=== PATIENT | female | born 1970 | race Caucasian/White ===

== ENCOUNTER 2020-05-11 18:22 | Inpatient (IN) | payer MEDICAID ==
[~2020-05-11] VITALS: Ht 162.6 cm; Wt 76.5 kg
[2020-05-11 19:39] LABS: BASOPHILS 0.2 % (0-2); HEMATOCRIT 44.4 % (36.0-48.0); HEMOGLOBIN 14.6 g/dL (12-16); IMMATURE GRANULOCYTES 0.4 % (0-5); LYMPHOCYTES 21.3 % (15-50); MCH 26.1 pg (26.0-34.0); MCHC 32.9 g/dL (31.0-37.0); MCV 79.4 fL (80.0-100.0); MONOCYTES 6.2 % (2-11); NEUTROPHILS 69.9 % (40-80); PLATELET COUNT 199 10x3/uL (130-400); RBC 5.59 10x6/uL (4.00-5.40); RDW 16.1 % (11.5-14.5); WBC 14.2 10x3/uL (4.8-10.8)
[2020-05-11 19:41] LABS: BILIRUBIN NEGATIVE (NEGATIVE); KETONE NEGATIVE (NEGATIVE); NITRITE POSITIVE (NEGATIVE); UROBILINOGEN NORMAL mg/dL (< 2)
[2020-05-11 19:42] LABS: BACTERIA FEW HPF (NONE SEEN); EPITHELIAL CELLS 0-5 /hpf (0-5)
[2020-05-11 19:50] LABS: APTT 27.9 SECONDS (22.8-39.4); INR 0.96 (0.85-1.17); PROTIME 12.8 SECONDS (11.6-15.0)
[2020-05-11 19:59] LABS: CALC OSMOLALITY 270 mosm/kg (275-300); CALCIUM 9.5 mg/dL (8.5-10.1); CARBON DIOXIDE 27.9 mmol/L (21.0-32.0); CHLORIDE - SERUM 99 mmol/L (98-107); CREATININE - SERUM 0.7 mg/dL (0.6-1.3); GLUCOSE 280 mg/dL (74-106); POTASSIUM - SERUM 3.5 mmol/L (3.5-5.1); SODIUM 131 mmol/L (136-145); UREA NITROGEN 8 mg/dL (7-18); eGFR NON AFRICAN AMERICAN > 90 mL/min (90-120)
[2020-05-11 20:13] LABS: ALBUMIN 3.7 g/dL (3.4-5.0); ALKALINE PHOSPHATASE 174 U/L (30-120); ALT (SGPT) 16 U/L (10-68); BILIRUBIN - TOTAL 0.37 mg/dL (0.2-1.3); LIPASE 104 U/L (73-393); PRO BNP 181 pg/mL (0-125); PROTEIN - SERUM 8.4 g/dL (6.4-8.2)
[2020-05-11 20:16] LABS: TROPONIN-I < 0.017 ng/mL (0.000-0.060)
[2020-05-11 21:30] VITALS: BP 105/61
--- NOTE | 2020-05-11 22:12 | NUR ---
PT GIVEN BLANKETS AND PILLOW. DENIES FURTHER NEEDS, CALL LIGHT IN REACH. WILL CONTINUE TO MONITOR.
[2020-05-11 23:30] VITALS: BP 112/68
[2020-05-12] VITALS (9 sets, daily range): BP systolic 105–154; BP diastolic 63–89
--- NOTE | 2020-05-12 00:08 | NUR ---
PT AMBULATED TO RESTROOM INDEPENDENTLY.
--- NOTE | 2020-05-12 02:19 | NUR ---
PT GIVEN ICE WATER, DENIES FURTHER NEEDS AT THIS TIME. CALL LIGHT IN REACH. WILL CONTINUE TO MONITOR.
--- NOTE | 2020-05-12 04:10 | NUR ---
PT RESTING WITH EYES CLOSED, RR EVEN AND UNLABORED, VSS, CALL LIGHT IN REACH. WILL CONTINUE TO MONITOR.
[2020-05-12 05:33] LABS: BASOPHILS 0.2 % (0-2); EOSINOPHILS 2.3 % (0-7); HEMATOCRIT 38.3 % (36.0-48.0); HEMOGLOBIN 12.2 g/dL (12-16); IMMATURE GRANULOCYTES 0.5 % (0-5); LYMPHOCYTES 32.2 % (15-50); MCH 25.6 pg (26.0-34.0); MCHC 31.9 g/dL (31.0-37.0); MCV 80.5 fL (80.0-100.0); MEAN PLATELET VOLUME 9.9 fL (7.4-10.4); MONOCYTES 7.9 % (2-11); NEUTROPHILS 56.9 % (40-80); RBC 4.76 10x6/uL (4.00-5.40); RDW 16.3 % (11.5-14.5)
[2020-05-12 05:34] LABS: PLATELET COUNT 150 10x3/uL (130-400); WBC 8.6 10x3/uL (4.8-10.8)
--- NOTE | 2020-05-12 06:09 | NUR ---
PT RESTING QUIETLY, EYES CLOSED, RR EVEN AND UNLABORED. PT AWAKES EASILY TO VERBAL STIMULI, DENIES ANY NEEDS AT THIS TIME. CALL LIGHT IN REACH. WILL CONTINUE TO MONITOR.
[2020-05-12 06:27] LABS: CALCIUM 8.3 mg/dL (8.5-10.1); CARBON DIOXIDE 26.7 mmol/L (21.0-32.0); CHLORIDE - SERUM 104 mmol/L (98-107); MAGNESIUM - SERUM 1.8 mg/dL (1.8-2.4); PHOSPHOROUS 2.9 mg/dL (2.5-4.9); POTASSIUM - SERUM 3.6 mmol/L (3.5-5.1); SODIUM 137 mmol/L (136-145); UREA NITROGEN 9 mg/dL (7-18)
[2020-05-12 06:28] LABS: CALC OSMOLALITY 278 mosm/kg (275-300); CREATININE - SERUM 0.5 mg/dL (0.6-1.3); GLUCOSE 204 mg/dL (74-106); eGFR NON AFRICAN AMERICAN > 90 mL/min (90-120)
--- NOTE | 2020-05-12 07:15 | NUR ---
ASSUMED CARE OF PT. RESTING IN BED, LYING ON LEFT SIDE EYES CLOSED. NAD NOTED. VSS
--- NOTE | 2020-05-12 13:56 | NUR ---
TO CT VIA STRETCHER WITH CLAIMS SUPERVISOR
--- NOTE | 2020-05-12 18:15 | NUR ---
REPORT TO ELIZA DE LA CRUZ
[2020-05-12] MEDS ORDERED: BAYER CHEWABLE81 MG PO (19:36)
[2020-05-12] MEDS ORDERED: OXYBUTYNIN CHLOR5 MG PO (19:36)
[2020-05-12] MEDS ORDERED: NITROQUICK0.4 MG SL (19:37)
[2020-05-12] MEDS ORDERED: OMEPRAZOLE20 M1 PO (19:37)
[2020-05-12] MEDS ORDERED: ZOLOFT100 MG PO (19:38)
[2020-05-12] MEDS ORDERED: ZESTRIL10 MG PO (19:38)
[2020-05-12] MEDS ORDERED: COREG 3.1253.125 MG PO (19:38)
[2020-05-12] MEDS ORDERED: LIPITOR40 MG PO (19:39)
[2020-05-12] MEDS ORDERED: EFFIENT10 MG PO (19:39)
[2020-05-12] MEDS ORDERED: GLUCOPHAGE1000 MG PO (19:40)
[2020-05-12] MEDS ORDERED: HUMALOG 30100 UNITS/ SC (19:41)
[2020-05-13] VITALS: BP 132/78
[2020-05-13 00:45] VITALS: BP 154/89; Ht 162.6 cm; Wt 76.5 kg
[2020-05-13 04:42] VITALS: BP 116/67
[2020-05-13 05:42] LABS: BASOPHILS 0.3 % (0-2); EOSINOPHILS 2.1 % (0-7); HEMATOCRIT 37.1 % (36.0-48.0); HEMOGLOBIN 11.4 g/dL (12-16); IMMATURE GRANULOCYTES 0.5 % (0-5); LYMPHOCYTES 39.7 % (15-50); MCH 25.2 pg (26.0-34.0); MCHC 30.7 g/dL (31.0-37.0); MCV 81.9 fL (80.0-100.0); MEAN PLATELET VOLUME 9.9 fL (7.4-10.4); MONOCYTES 5.9 % (2-11); NEUTROPHILS 51.5 % (40-80); PLATELET COUNT 142 10x3/uL (130-400); RBC 4.53 10x6/uL (4.00-5.40); RDW 16.3 % (11.5-14.5); WBC 6.6 10x3/uL (4.8-10.8)
[2020-05-13 06:12] LABS: CALC OSMOLALITY 283 mosm/kg (275-300); CALCIUM 8.6 mg/dL (8.5-10.1); CARBON DIOXIDE 25.5 mmol/L (21.0-32.0); CHLORIDE - SERUM 106 mmol/L (98-107); CREATININE - SERUM 0.4 mg/dL (0.6-1.3); GLUCOSE 219 mg/dL (74-106); MAGNESIUM - SERUM 1.9 mg/dL (1.8-2.4); PHOSPHOROUS 3.2 mg/dL (2.5-4.9); POTASSIUM - SERUM 3.8 mmol/L (3.5-5.1); SODIUM 139 mmol/L (136-145); UREA NITROGEN 11 mg/dL (7-18); eGFR NON AFRICAN AMERICAN > 90 mL/min (90-120)
[2020-05-13 09:52] VITALS: BP 147/88
[2020-05-13] MEDS ORDERED: LEVAQUIN750 MG PO (11:13)
--- NOTE | 2020-05-13 11:45 | MORECARE ---
CASE MANAGEMENT DISCHARGE SUMMARY PATIENT: ASHISH WILL UNIT: [id number] ADM DATE: 05/11/20 AGE: 50 : 74 SEX: F ROOM/BED: D.2104 AUTHOR: FIDELINA MONTES PHYSICIAN: REFERRING PHYSICIAN: AJIT POWERS MD DATE OF SERVICE: 05/13/20 Discharge Plan Patient Name: ASHISH WILL Facility: [facility]:[place] : 1970 Planned Disposition: Home Anticipated Discharge Date: 05/13/20 Discharge Date: Expected LOS: 2 Initial Reviewer: [email or web address] Initial Review Date: 05/11/2020 Generated: 05/13/20 12:44 pm DCP- Discharge Planning Updated by [email or web address]: Yulissa Subramanian on 05/13/20 10:[address] CM met with patient for DC planning Patient lives independently with her brother & [id number]. PCP: In the process of establishing. Patient just moved from [place]. Pharmacy: [facility]. DME: None. Emergency contact: Sivan Ronquillo (sister) [phone]. Patient denies the need for HHS, Rehab, SNF. Patient states her sister will drive her home upon DC. CM will assist PRN with Dc planning needs. Patient voices no needs at this time. Patient Name: ASHISH WILL Page [id number] at 1145 All edits/amendments must be made on the electronic document DICTATION DATE: 05/13/20 1144 ART HISTORY PROFESSOR: LAURENCE 05/13/20 1144 RPT#: [id number] DC DATE: STATUS: ADM IN [facility] [address] [place] [address] END OF REPORT
--- NOTE | 2020-05-13 11:51 | MORECARE ---
CASE MANAGEMENT DISCHARGE SUMMARY PATIENT: ASHISH WILL UNIT: [id number] ADM DATE: 05/11/20 AGE: 50 : 74 SEX: F ROOM/BED: D.210 AUTHOR: JYOTI,DOC PHYSICIAN: REFERRING PHYSICIAN: AJIT POWERS MD DATE OF SERVICE: 05/13/20 Discharge Plan Patient Name: ASHISH WILL Facility: [facility]:[place] : 1970 Planned Disposition: Home Anticipated Discharge Date: 05/13/20 Discharge Date: Expected LOS: 2 Initial Reviewer: [email or web address] Initial Review Date: 05/11/2020 Generated: 05/13/20 12:51 pm DCP- Discharge Planning Updated by [email or web address]: Yulissa Subramanian on 05/13/20 10:[address] CM met with patient for DC planning Patient lives independently with her brother & [id number]. PCP: In the process of establishing. Patient just moved from [place]. Pharmacy: [facility]. DME: None. Emergency contact: Sivanteena Ronquillo (sister) [phone]. Patient denies the need for HHS, Rehab, SNF. Patient states her sister will drive her home upon DC. CM will assist PRN with Dc planning needs. Patient voices no needs at this time. DCPIA - Discharge Planning Initial Assessment Updated by [email or web address]: Yulissa Subramanian on 05/13/20 11:45 am * Is the patient Alert and Oriented? Yes * PCP In the process of establishing with a MD. * [facility]acy [facility] * Preadmission Environment Home with Family * ADLs Independent * Equipment None * Other Equipment NA * List name and contact numbers for known caregivers / representatives who currently or will assist patient after discharge: Luz Ronquillo (sister) [phone] * Verbal permission to speak to the caregivers and representatives has been obtained from the patient. N/A * Community resources currently utilized None * Please name any agencies selected above. Katia Ronquillo (sister) [phone] * Additional services required to return to the preadmission environment? No * Can the patient safely return to the preadmission environment? Yes * Has this patient been hospitalized within the prior 30 days at any hospital? No Last DP export: 05/13/20 10:45 a Patient Name: ASHISH WILL Page [id number] at 1151 All edits/amendments must be made on the electronic document DICTATION DATE: 05/13/20 115 GRADUATE ASSISTANT: LAURENCE 05/13/20 1151 RPT#: [id number] DC DATE: STATUS: ADM IN [facility] [address] [place] [address] END OF REPORT
--- NOTE | 2020-05-13 13:14 | NUR ---
SALINE LOCK REMOVED, DISCHARGE INSTRUCTIONS DISCUSSED WITH PATIENT, TO CARV VIA WHEELCHAIR.
--- NOTE | 2020-05-13 16:52 | MORECARE ---
CASE MANAGEMENT DISCHARGE SUMMARY PATIENT: ASHISH WILL UNIT: [id number] ADM DATE: 05/11/20 AGE: 50 : 74 SEX: F ROOM/BED: D.8914 AUTHOR: JYOTI,DOC PHYSICIAN: REFERRING PHYSICIAN: AJIT POWERS MD DATE OF SERVICE: 05/13/20 Discharge Plan Patient Name: ASHISH WILL Facility: [facility]:[place] : 1970 Planned Disposition: Home Anticipated Discharge Date: 05/13/20 Discharge Date: 05/13/2020 Expected LOS: 2 Initial Reviewer: [email or web address] Initial Review Date: 05/11/2020 Generated: 05/13/20 5:51 pm DCP- Discharge Planning Updated by [email or web address]: Yulissa Subramanian on 05/13/20 10:[address] CM met with patient for DC planning Patient lives independently with her brother & hpejjc-wc-[id number]. PCP: In the process of establishing. Patient just moved from [place]. [facility]. DME: None. Emergency contact: Sivan Ronquillo (sister) [phone]. Patient denies the need for HHS, Rehab, SNF. Patient states her sister will drive her home upon DC. CM will assist PRN with Dc planning needs. Patient voices no needs at this time. DCPIA - Discharge Planning Initial Assessment Updated by [email or web address]: Yulissa Subramanian on 05/13/20 11:45 am * Is the patient Alert and Oriented? Yes * PCP In the process of establishing with a MD. * [facility] * Preadmission Environment Home with Family * ADLs Independent * Equipment None * Other Equipment NA * List name and contact numbers for known caregivers / representatives who currently or will assist patient after discharge: Luz Ronquillo (sister) [phone] * Verbal permission to speak to the caregivers and representatives has been obtained from the patient. N/A * Community resources currently utilized None * Please name any agencies selected above. Katia Ronquillo (sister) [phone] * Additional services required to return to the preadmission environment? No * Can the patient safely return to the preadmission environment? Yes * Has this patient been hospitalized within the prior 30 days at any hospital? No Last DP export: 05/13/20 10:52 a Patient Name: ASHISH WILL Page [id number] at 1652 All edits/amendments must be made on the electronic document DICTATION DATE: 05/13/201651 COMPENSATION BUSINESS PARTNER: LAURENCE 05/13/201651 RPT#: [id number] DC DATE:05/13/20 STATUS: DIS IN [facility] [address] [place] [address] END OF REPORT
== END 2020-05-13 13:15 | disposition home or self-care (01) | DRG 690 ==
LOC: D.ER 18:22 → EDBD 18:22 → D.EDHOLD 20:09 → D.M2 05-12 17:57
PROVIDERS: Family Medicine; ADMIT Family Medicine Adult Medicine; ATTEND Family Medicine Adult Medicine
DX: N10 Acute pyelonephritis (principal); F17.203 Nicotine dependence unspecified, with withdrawal; E11.65 Type 2 diabetes mellitus with hyperglycemia; I10 Essential (primary) hypertension; E78.5 Hyperlipidemia, unspecified; I25.10 Atherosclerotic heart disease of native coronary artery without angina pectoris; F41.8 Other specified anxiety disorders; K21.9 Gastro-esophageal reflux disease without esophagitis